=== PATIENT | female | born 1940 ===

== ENCOUNTER 2018-01-12 20:34 | Inpatient (IN) | payer MEDICARE, MEDICAID ==
[2018-01-12] MEDS ORDERED: Sodium Chloride 0.9% 1,000 ML IV STA (21:44)
--- NOTE | 2018-01-12 22:02 | ED PDOC ---
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 As per EMS, her neighbors reported bizzare behavior, saying she was in her lobby and hearing voices. However, patient denies this and states she instead is having left sided back pain, cough for about a week and mild shortness of breath. Patient denies productive cough, fever, leg swelling, rhinorrhea, sore throat, SI, auditory hallucinaions, visual hallucinations or any other medical complaints. PMD: Dr. Jesus Monge Past Medical History Reviewed: Historical Data, Nursing Documentation, Vital Signs Vital Signs: Last Vital Signs Temp 97.9 F 01/12/18 20:39 Pulse 79 01/12/18 20:39 Resp 16 01/12/18 20:39 BP 82/53 L 01/12/18 20:39 Pulse Ox 99 01/12/18 20:39 - Medical History PMH: Asthma, Depression, Diabetes, HTN - Surgical History Other surgeries: gastric bypass, left mastectomy for breast cancer - Family History Family History: States: No Known Family Hx - Social History Current smoker - smoking cessation education provided: No Ex-Smoker (has not smoked in the last 12 months): No - Home Medications Home Medications: Ambulatory Orders Medication Instructions Recorded Furosemide [Lasix] 20 mg PO DAILY 01/12/18 Ibuprofen [Motrin Tab] 400 mg PO PRN PRN 01/12/18 Metronidazole [Flagyl] 250 mg PO DAILY 01/12/18 Montelukast [Singulair] 10 mg PO DAILY 01/12/18 SITagliptin [Januvia] 50 mg PO DAILY 01/12/18 Zolpidem [Ambien] 10 mg PO DAILY 01/12/18 - Allergies Allergies/Adverse Reactions: Allergies Allergy/AdvReac Type Severity Reaction Status Date / Time prednisone Allergy REDNESS Verified 01/12/18 20:45 Physical Exam - Reviewed Nursing Documentation Reviewed: Yes Vital Signs Reviewed: Yes - Physical Exam Appears: Positive for: No Acute Distress Head Exam: Positive for: ATRAUMATIC Skin: Positive for: Normal Color, Warm, Dry Eye Exam: Positive for: EOMI, Normal appearance, PERRL ENT: Negative for: Pharyngeal Erythema, Tonsillar Exudate Neck: Positive for: Painless ROM, Supple Cardiovascular/Chest: Positive for: Regular Rate, Rhythm, Chest Non Tender. Negative for: Murmur Respiratory: Positive for: Wheezing (expiatory bilaterally). Negative for: Accessory Muscle Use, Rales, Respiratory Distress Gastrointestinal/Abdominal: Positive for: Soft. Negative for: Tenderness Back: Positive for: Other (left upper thoracic paraspinal tenderness to palpation) Extremity: Negative for: Pedal Edema, Calf Tenderness Neurologic/Psych: Positive for: Alert, Oriented (x3), Mood/Affect (normal mood and affect). Negative for: Motor/Sensory Deficits - Laboratory Results Result Diagrams: 01/12/18 22:11 01/12/18 22:11 - ECG O2 Sat by Pulse Oximetry: 99 (RA) Pulse Ox Interpretation: Normal Medical Decision Making Medical Decision Making: Time: 21:13 Initial Impression: shortness of breath and cough with back pain. Possible paranoid delusions. Initial Plan: --Head CT --EKG --CMP --Urine drug screen --Magnesium --Phosphorous --Thyroid stimulating hormone --Troponin --CBC with differentials --D Dimer --Partial Thromboplastin Time --Chest x-ray --Glucose --Urinalysis Scribe Attestation: Documented by Deann Perez, acting as a scribe for Alma Gonzalez MD Provider Scribe Attestation: All medical record entries made by the Scribe were at my direction and personally dictated by me. I have reviewed the chart and agree that the record accurately reflects my personal performance of the history, physical exam, medical decision making, and the department course for this patient. I have also personally directed, reviewed, and agree with the discharge instructions and disposition. Disposition - Clinical Impression Clinical Impression: Renal failure, acute, UTI (urinary tract infection) Discussed With DrRiccardo: Kvng Dover Comment: Admits for pt's PMD Dr Pamela Monge Doctor Will See Patient In The: Hospital Counseled Patient/Family Regarding: Studies Performed, Diagnosis - Disposition Disposition Time: 22:45 Condition: GUARDED - Pt Status Changed To: Hospital Disposition Of: Inpatient - Admit Certification Admit to Inpatient:: After my assessment, the patient will require hospitalization for at least two midnights. This is because of the severity of symptoms shown, intensity of services needed, and/or the medical risk in this patient being treated as an outpatient. - POA Present On Arrival: None
[2018-01-12 22:26] LABS: SQUAMOUS EPITHIAL 1 /hpf (0-5); URINE BACTERIA RARE (<OCC); URINE BILIRUBIN NEGATIVE (NEGATIVE); URINE BLOOD MODERATE (NEGATIVE); URINE CLARITY CLOUDY (Clear); URINE COLOR YELLOW (YELLOW); URINE GLUCOSE (UA) NEG (Normal); URINE LEUKOCYTE ESTERASE LARGE Leu/uL (Negative); URINE PROTEIN 30 mg/dL (NEGATIVE); URINE UROBILINOGEN 0.2-1.0 mg/dL (0.2-1.0)
[2018-01-12 22:29] LABS: BASO # 0.1 K/uL (0.0-0.2); BASO % 1.3 % (0.0-2.0); EOS # 0.6 K/uL (0.0-0.7); EOS % 6.7 % (0.0-4.0); HEMOGLOBIN 10.5 g/dL (12.0-16.0); LYMPH # 1.5 K/uL (1.0-4.3); LYMPH % 15.8 % (20.0-40.0); MEAN CELL VOLUME 89.9 fl (81.0-99.0); MEAN CORPUSCULAR HEMOGLOBIN 29.6 pg (27.0-31.0); MEAN PLATELET VOLUME 8.6 fl (7.2-11.7); MONO # 0.9 K/uL (0.0-0.8); MONO % 9.6 % (0.0-10.0); NEUT # 6.2 K/uL (1.8-7.0); NEUT % 66.6 % (50.0-75.0); RBC 3.55 Mil/uL (3.80-5.20); RED CELL DISTRIBUTION WIDTH 14.4 % (11.5-14.5); WHITE BLOOD COUNT 9.3 K/uL (4.8-10.8)
[2018-01-12 22:43] LABS: BARBITURATES, UR NEGATIVE (NEGATIVE); BENZODIAZEPINES, UR POSITIVE (NEGATIVE); OPIATES, UR POSITIVE (NEGATIVE); PHENCYCLIDINE, UR NEGATIVE (NEGATIVE)
[2018-01-12 22:45] LABS: ALB/GLOB RATIO 1.2 (1.0-2.1); ALBUMIN 4.3 g/dL (3.5-5.0); ALT/SGPT 27 U/L (9-52); AST/SGOT 32 U/L (14-36); BLOOD UREA NITROGEN 51 mg/dl (7-17); CALCIUM 8.2 mg/dL (8.4-10.2); GFR AFRICAN-AMERICAN 19; GFR NON-AFRICAN AMERICAN 16
[2018-01-12 22:45] LABS: PARTIAL THROMBOPLASTIN TIME 27.3 Seconds (25.6-37.1); PROTHROMBIN TIME 11.4 Seconds (9.8-13.1)
[2018-01-13] MEDS ORDERED: cefTRIAXone (Rocephin) 1 gm Inj ONE (00:07)
--- NOTE | 2018-01-13 08:08 | RAD ---
Date of service: 01/12/2018 HISTORY: LEFT sided back pain and cough COMPARISON: No prior. TECHNIQUE: Chest PA and lateral FINDINGS: LUNGS: No active pulmonary disease. PLEURA: No significant pleural effusion identified. No pneumothorax apparent. CARDIOVASCULAR: Normal. OSSEOUS STRUCTURES: No significant abnormalities. VISUALIZED UPPER ABDOMEN: Normal. OTHER FINDINGS: None. IMPRESSION: No acute cardiopulmonary disease appreciated.
[2018-01-13] MEDS: Sodium Chloride 0.9% 1,000 ML IV SCH ×2 (12:43→17:24)
--- NOTE | 2018-01-13 12:56 | CT ---
Date of service: 01/12/2018 PROCEDURE: CT HEAD WITHOUT CONTRAST. HISTORY: paranoid delusions htn COMPARISON: None available. TECHNIQUE: Axial computed tomography images were obtained through the head/brain without intravenous contrast. Radiation dose: Total exam DLP = 754 mGy-cm. This CT exam was performed using one or more of the following dose reduction techniques: Automated exposure control, adjustment of the mA and/or kV according to patient size, and/or use of iterative reconstruction technique. FINDINGS: HEMORRHAGE: No intracranial hemorrhage. BRAIN: No mass effect or edema. No atrophy or chronic microvascular ischemic changes. VENTRICLES: Unremarkable. No hydrocephalus. CALVARIUM: Unremarkable. PARANASAL SINUSES: Unremarkable as visualized. No significant inflammatory changes. MASTOID AIR CELLS: Partial opacification of the left mastoid air cells OTHER FINDINGS: The report concurs with the preliminary [facility] report IMPRESSION: No acute findings
--- NOTE | 2018-01-13 14:03 | US ---
Date of service: 01/13/2018 PROCEDURE: Ultrasound of the Kidneys HISTORY: renal insufficiency COMPARISON: None available. TECHNIQUE: Sonogram of the kidneys. FINDINGS: RIGHT KIDNEY: Measures: 4.6 x 8.4 cm. Normal in size, contour and echogenicity. No stone, solid mass lesion or hydronephrosis visualized. LEFT KIDNEY: Measures: 4.8 x 8.4 cm. Normal in size, contour and echogenicity. No stone, solid mass lesion or hydronephrosis visualized. Simple cyst midpole region 2.5 x 1.8 cm OTHER FINDINGS: None. IMPRESSION: Unremarkable renal sonogram.
--- NOTE | 2018-01-13 19:55 | CP.PCM.CON ---
History of Present Illness - History of Present Illness History of Present Illness: pt is seen and examined, full consult is dictated #[id number] Past Patient History - Past Medical History & Family History Past Medical History?: Yes - Past Social History Smoking Status: Never Smoked - CARDIAC Hx Hypertension: Yes - PULMONARY Hx Asthma: Yes - NEUROLOGICAL Hx Neurological Disorder: No - HEENT Hx HEENT Problems: No - RENAL Hx Chronic Kidney Disease: No - ENDOCRINE/METABOLIC Hx Endocrine Disorders: Yes Hx Diabetes Mellitus Type 2: Yes - HEMATOLOGICAL/ONCOLOGICAL Hx Blood Disorders: Yes Hx Cancer: Yes (Left breast) - INTEGUMENTARY Hx Dermatological Problems: No - MUSCULOSKELETAL/RHEUMATOLOGICAL Hx Falls: No - GASTROINTESTINAL Hx Gastrointestinal Disorders: No - GENITOURINARY/GYNECOLOGICAL Hx Genitourinary Disorders: No - PSYCHIATRIC Hx Depression: Yes - SURGICAL HISTORY Hx Surgeries: Yes Hx Mastectomy: Yes (Left) - ANESTHESIA Hx Anesthesia: Yes Hx Anesthesia Reactions: No Hx Malignant Hyperthermia: No Has any member of the family had a problem w/ anesthesia?: No Meds Allergies/Adverse Reactions: Allergies Allergy/AdvReac Type Severity Reaction Status Date / Time prednisone Allergy REDNESS Verified 01/12/18 20:45 - Medications Medications: Current Medications Heparin Sodium (Porcine) (Heparin) 5,000 units SC Q8 KIM PRN Reason: Protocol Last Admin: 01/13/18 15:23 Dose: 5,000 units Sodium Chloride (Sodium Chloride 0.9%) 1,000 mls @ 100 mls/hr IV .Q10H KIM Stop: 01/14/18 07:30 Last Admin: 01/13/18 17:24 Dose: 100 mls/hr Ceftriaxone Sodium 1 gm/ (Sodium Chloride) 100 mls @ 100 mls/hr IVPB DAILY KIM PRN Reason: Protocol Last Admin: 01/13/18 12:44 Dose: 100 mls/hr Sitagliptin Phosphate (Januvia) 25 mg PO DAILY [facility] Last Admin: 01/13/18 12:52 Dose: Not Given Results - Vital Signs Recent Vital Signs: Last Vital Signs Temp 97.7 F 01/13/18 15:40 Pulse 72 01/13/18 15:40 Resp 20 01/13/18 15:40 BP 114/70 01/13/18 15:40 Pulse Ox 98 01/13/18 15:40 - Labs Result Diagrams: 01/12/18 22:11 01/12/18 22:11 Labs: Laboratory Results - last 24 hr 01/12/18 01/12/18 01/12/18 21:53 21:55 22:11 WBC 9.3 Cancelled RBC 3.55 L Cancelled Hgb 10.5 L Cancelled Hct 31.9 L Cancelled MCV 89.9 Cancelled MCH 29.6 Cancelled MCHC 33.0 Cancelled RDW 14.4 Cancelled Plt Count 212 Cancelled MPV 8.6 Cancelled Gran % Cancelled Neut % (Auto) 66.6 Lymph % (Auto) 15.8 L Cancelled [place] % (Auto) 9.6 Cancelled Eos % (Auto) 6.7 H Cancelled Baso % (Auto) 1.3 Cancelled Gran # Cancelled Neut # (Auto) 6.2 Lymph # (Auto) 1.5 Cancelled [place] # (Auto) 0.9 H Cancelled Eos # (Auto) 0.6 Cancelled Baso # (Auto) 0.1 Cancelled PT INR APTT D-Dimer, Quantitative Sodium Potassium Chloride Carbon Dioxide Anion Gap BUN Creatinine Est GFR ( Amer) Est GFR (Non-Af Amer) POC Glucose (mg/dL) 108 Random Glucose Hemoglobin A1c Calcium Phosphorus Magnesium Total Bilirubin AST ALT Alkaline Phosphatase Troponin I NT-Pro-B Natriuret Pep Total Protein Albumin Globulin Albumin/Globulin Ratio TSH 3rd Generation Urine Color Urine Clarity Urine pH Ur Specific [place] Urine Protein Urine Glucose (UA) Urine Ketones Urine Blood Urine Nitrate Urine Bilirubin Urine Urobilinogen Ur Leukocyte Esterase Urine RBC (Auto) Urine Microscopic WBC Ur Squamous Epith Cells Urine Bacteria Ur Random Sodium Ur Random Potassium Urine Opiates Screen Urine Methadone Screen Ur Barbiturates Screen Ur Phencyclidine Scrn Ur Amphetamines Screen U Benzodiazepines Scrn U Oth Cocaine Metabols U Cannabinoids Screen 01/12/18 01/12/18 01/12/18 22:11 22:11 22:11 WBC RBC Hgb Hct MCV MCH MCHC RDW Plt Count MPV Gran % Neut % (Auto) Lymph % (Auto) [place] % (Auto) Eos % (Auto) Baso % (Auto) Gran # Neut # (Auto) Lymph # (Auto) [place] # (Auto) Eos # (Auto) Baso # (Auto) PT INR APTT D-Dimer, Quantitative Sodium 138 Potassium 4.9 Chloride 107 Carbon Dioxide 17 L Anion Gap 19 BUN 51 H Creatinine 2.9 H Est GFR ( Amer) 19 Est GFR (Non-Af Amer) 16 POC Glucose (mg/dL) Random Glucose 117 H Hemoglobin A1c Calcium 8.2 L Phosphorus 3.9 Magnesium 2.0 Total Bilirubin 0.5 AST 32 ALT 27 Alkaline Phosphatase 93 Troponin I < 0.0120 NT-Pro-B Natriuret Pep 1100 H Total Protein 7.8 Albumin 4.3 Globulin 3.5 Albumin/Globulin Ratio 1.2 TSH 3rd Generation 1.15 Urine Color Urine Clarity Urine pH Ur Specific [place] Urine Protein Urine Glucose (UA) Urine Ketones Urine Blood Urine Nitrate Urine Bilirubin Urine Urobilinogen Ur Leukocyte Esterase Urine RBC (Auto) Urine Microscopic WBC Ur Squamous Epith Cells Urine Bacteria Ur Random Sodium Ur Random Potassium Urine Opiates Screen Positive H Urine Methadone Screen Negative Ur Barbiturates Screen Negative Ur Phencyclidine Scrn Negative Ur Amphetamines Screen Negative U Benzodiazepines Scrn Positive U Oth Cocaine Metabols Negative U Cannabinoids Screen Negative 01/12/18 01/12/18 01/13/18 22:26 22:30 00:10 WBC RBC Hgb Hct MCV MCH MCHC RDW Plt Count MPV Gran % Neut % (Auto) Lymph % (Auto) [place] % (Auto) Eos % (Auto) Baso % (Auto) Gran # Neut # (Auto) Lymph # (Auto) [place] # (Auto) Eos # (Auto) Baso # (Auto) PT 11.4 INR 1.0 APTT 27.3 D-Dimer, Quantitative 433 H Sodium Potassium Chloride Carbon Dioxide Anion Gap BUN Creatinine Est GFR ( Amer) Est GFR (Non-Af Amer) POC Glucose (mg/dL) Random Glucose Hemoglobin A1c Calcium Phosphorus Magnesium Total Bilirubin AST ALT Alkaline Phosphatase Troponin I NT-Pro-B Natriuret Pep Total Protein Albumin Globulin Albumin/Globulin Ratio TSH 3rd Generation Urine Color Yellow Urine Clarity Cloudy Urine pH 6.0 Ur Specific [place] 1.009 Urine Protein 30 Urine Glucose (UA) Neg Urine Ketones Negative Urine Blood Moderate Urine Nitrate Negative Urine Bilirubin Negative Urine Urobilinogen 0.2-1.0 Ur Leukocyte Esterase Large Urine RBC (Auto) 66 H Urine Microscopic WBC 82 H Ur Squamous Epith Cells 1 Urine Bacteria Rare Ur Random Sodium 30 Ur Random Potassium 42.3 Urine Opiates Screen Urine Methadone Screen Ur Barbiturates Screen Ur Phencyclidine Scrn Ur Amphetamines Screen U Benzodiazepines Scrn U Oth Cocaine Metabols U Cannabinoids Screen 01/13/18 01/13/18 01/13/18 11:24 12:15 12:15 WBC RBC Hgb Hct MCV MCH MCHC RDW Plt Count MPV Gran % Neut % (Auto) Lymph % (Auto) [place] % (Auto) Eos % (Auto) Baso % (Auto) Gran # Neut # (Auto) Lymph # (Auto) [place] # (Auto) Eos # (Auto) Baso # (Auto) PT INR APTT D-Dimer, Quantitative Sodium Potassium Chloride Carbon Dioxide Anion Gap BUN Creatinine Est GFR ( Amer) Est GFR (Non-Af Amer) POC Glucose (mg/dL) 71 Random Glucose Hemoglobin A1c 5.6 Calcium Phosphorus Magnesium Total Bilirubin AST ALT Alkaline Phosphatase Troponin I NT-Pro-B Natriuret Pep Total Protein Albumin Globulin Albumin/Globulin Ratio TSH 3rd Generation 0.71 Urine Color Urine Clarity Urine pH Ur Specific [place] Urine Protein Urine Glucose (UA) Urine Ketones Urine Blood Urine Nitrate Urine Bilirubin Urine Urobilinogen Ur Leukocyte Esterase Urine RBC (Auto) Urine Microscopic WBC Ur Squamous Epith Cells Urine Bacteria Ur Random Sodium Ur Random Potassium Urine Opiates Screen Urine Methadone Screen Ur Barbiturates Screen Ur Phencyclidine Scrn Ur Amphetamines Screen U Benzodiazepines Scrn U Oth Cocaine Metabols U Cannabinoids Screen 01/13/18 15:59 WBC RBC Hgb Hct MCV MCH MCHC RDW Plt Count MPV Gran % Neut % (Auto) Lymph % (Auto) [place] % (Auto) Eos % (Auto) Baso % (Auto) Gran # Neut # (Auto) Lymph # (Auto) [place] # (Auto) Eos # (Auto) Baso # (Auto) PT INR APTT D-Dimer, Quantitative Sodium Potassium Chloride Carbon Dioxide Anion Gap BUN Creatinine Est GFR ( Amer) Est GFR (Non-Af Amer) POC Glucose (mg/dL) 113 H Random Glucose Hemoglobin A1c Calcium Phosphorus Magnesium Total Bilirubin AST ALT Alkaline Phosphatase Troponin I NT-Pro-B Natriuret Pep Total Protein Albumin Globulin Albumin/Globulin Ratio TSH 3rd Generation Urine Color Urine Clarity Urine pH Ur Specific [place] Urine Protein Urine Glucose (UA) Urine Ketones Urine Blood Urine Nitrate Urine Bilirubin Urine Urobilinogen Ur Leukocyte Esterase Urine RBC (Auto) Urine Microscopic WBC Ur Squamous Epith Cells Urine Bacteria Ur Random Sodium Ur Random Potassium Urine Opiates Screen Urine Methadone Screen Ur Barbiturates Screen Ur Phencyclidine Scrn Ur Amphetamines Screen U Benzodiazepines Scrn U Oth Cocaine Metabols U Cannabinoids Screen
--- NOTE | 2018-01-13 20:25 | HP ---
CHIEF COMPLAINT: Altered mental status. HISTORY OF PRESENT ILLNESS: This is a 77-year-old female who was found in hallway by hearing voice, and change in her usual mental status. The patient was sent to the hospital. The patient denied symptoms, but complaining of back pain. After evaluation, the patient was found to be in acute renal failure. The patient was admitted for further management. REVIEW OF SYSTEMS: Review of systems at this time is negative for headache, dizziness, syncope, loss of consciousness, chest pain, shortness of breath, nausea or vomiting, diarrhea, constipation, or any new joint or extremity pain. Review of systems of all other system is unremarkable. PAST MEDICAL HISTORY: Significant for hypertension. PAST SURGICAL HISTORY: Unremarkable. PERSONAL HISTORY: The patient is currently nonsmoker, nondrinker. No substance abuse. MEDICATIONS: The patient is on some home medications, which patient does not remember at this time. ALLERGIES: THE PATIENT IS NOT ALLERGIC TO ANY MEDICATION. FAMILY HISTORY: Noncontributory. PHYSICAL EXAMINATION: GENERAL: Well-built, well-nourished, 77-year-old female, in no acute distress. VITAL SIGNS: Temperature afebrile, pulse 88, respirations 18, blood pressure 130/76. No orthostatic changes. HEENT: Pupils reacting to light. No JVD. No thyromegaly. No lymphadenopathy. No nystagmus. Normocephalic, atraumatic skull. HEART EXAM: S1 and S2, normal and regular. No significant murmur, gallop, or rub is heard. LUNGS EXAM: Shows good bilateral air exchange. No rales or rhonchi. ABDOMEN: Soft and nontender. No organomegaly. No fluid. Bowel sounds are present and normal. EXTREMITIES EXAM: No edema. No calf swelling or tenderness. No acute ischemia. GEOPHYSICIST: Essentially unchanged. There is no sign of any acute gross focal, motor, or sensory neurological deficit. DIAGNOSTIC DATA: Available diagnostic data reviewed. Telemetry monitoring does not reveal significant arrhythmias. The patient's BUN and creatinine are elevated. ADMITTING IMPRESSION: Altered mental status most likely from prerenal azotemia. PLAN: As ordered. Case and plan discussed with the patient. Kvng Dover MD [facility] # [id number]
[2018-01-14] MEDS: Sodium Chloride 0.9% 1,000 ML IV SCH (03:30)
[2018-01-14 06:12] LABS: HEMOGLOBIN 8.4 g/dL (12.0-16.0); MEAN CORPUSCULAR HEMOGLOBIN 29.5 pg (27.0-31.0); MEAN CORPUSCULAR HGB CONC 32.8 g/dL (33.0-37.0); RBC 2.86 Mil/uL (3.80-5.20); WHITE BLOOD COUNT 5.7 K/uL (4.8-10.8)
[2018-01-14 06:40] LABS: ALBUMIN 2.9 g/dL (3.5-5.0); CALCIUM 7.3 mg/dL (8.4-10.2)
--- NOTE | 2018-01-14 07:12 | CON ---
DATE: 01/13/2018 RENAL CONSULTATION LOCATION: The patient is located in room 401, bed 1. REQUESTED BY: Dr. Kvng Dover. REASON FOR FOLLOWUP: Acute renal failure for further evaluation. HISTORY OF PRESENT ILLNESS: Mrs. Stanford is a 77-year-old elderly female with the past medical history significant for diabetes for 9 years and questionable hypertension, history of breast CA, status post left mastectomy about 10 years ago and also status post gastric bypass surgery, who was admitted with the chief complaints of feeling dizzy and hypertension and weakness. The patient was found to have increased BUN and creatinine and renal consult is requested for further evaluation. The patient is complaining of dizziness for the last two days and the patient also complains headache. Denies any nausea, vomiting, diarrhea. Denies any fever or cough. Denies any dysuria or frequency. Denies any shortness of breath. Denies any abdominal pain. PAST MEDICAL HISTORY: Significant for asthma, diabetes, hypertension, depression. PAST SURGICAL HISTORY: Status post left mastectomy and gastric bypass. ALLERGIES: ALLERGIC TO PREDNISONE. SOCIAL HISTORY: Denies any smoking. Denies any alcohol. Denies any drugs. PERSONAL HISTORY: She is and she claims her is in [place]. No children. FAMILY HISTORY: Both parents and she has six siblings, two and four alive. CURRENT MEDICATIONS: Her home medications include Flagyl, Ambien, ibuprofen, Januvia, Singulair, and Lasix. Her current medications in the hospital include Rocephin 1 gm daily and subcu heparin 5000 every 8 hours and Januvia 25 mg p.o. daily. IV fluids of the normal saline at 100 mL/hour. REVIEW OF SYSTEMS: Significant for dizziness and hypertension as per the patient. As per the ER evaluation, the patient was brought to the emergency room for bizarre behavior and hearing voices. All other review of systems are reviewed as per HPI. PHYSICAL EXAMINATION: VITAL SIGNS: As follows; her blood pressure on admission in the emergency room 82/53, pulse 79, respirations 16, temperature is 79.9, and saturation 99%, height is 4 feet 10 inches, weight is 170 pounds; that is on 01/12/2018 at 20:39 hours and her current blood pressure is 124/76, pulse 79, respirations 20, temperature 98, sats 96%, height 4 feet 10 inches, weight is 170 pounds. GENERAL: Mrs. Stanford is a 77 years old elderly female, well built, well nourished, not in distress. HEENT: Pupils normal, reactive to light and accommodation. Conjunctivae pink. Sclerae anicteric. The tongue is moist and trachea is midline. LUNGS: Symmetric on both sides. Bilateral breath sounds present. Clear to auscultation. BREASTS: Status post left mastectomy. CVS: [place] at the fifth intercostal space and midclavicular line. S1, S2 audible. No murmur or gallop. ABDOMEN: Normal in appearance. Soft, tympanic. No guarding. No rigidity. No hepatosplenomegaly. ULTRASONIC TESTER: The patient is alert, awake, and oriented x2 to 3. Sensory and motor system is grossly within normal limits. EXTREMITIES: No cyanosis. No clubbing. No edema. Cranial nerves II through XII are grossly intact. LABORATORY DATA: Her laboratory data include as follows. As of 01/12/2018; WBC 9.3, hemoglobin 10.5, hematocrit is 31.9, platelets 212. PT 11.4, PTT 27.3, and D-dimer 433. Sodium 138, potassium 4.9, chloride 107, CO2 17, BUN 51, creatinine 2.9, and glucose 117, calcium 8.2, total calcium 8.2, phosphorus 3.9, magnesium is 2, total bilirubin 0.5. AST 32, ALT 22, alkaline phosphatase is 93, troponin is 0.012 and proBNP 1100, total protein 7.8 and albumin 4.3. Urinalysis: Yellow, cloudy, pH 6, specific gravity of 1.009, protein 30. Glucose negative, ketones negative, blood moderate, nitrites negative, bilirubin negative, and urobilinogen 0.2 to 1.0. Leukocyte esterase is large, rbc 66, wbc 82, and bacteria is rare. Urine electrolytes: Urine sodium is 30 and urine potassium is 42.3. Urine drug screen positive for opiates and also positive for benzodiazepine. Other laboratory data: TSH is 0.73 as of 01/13/2018, and hemoglobin A1c is 5.6, Accu-checks 71 and 113. Other reports as of 01/12/2018. Chest x-ray: No acute cardiopulmonary disease appreciated. CT of the head as of 12/23/2017, no acute findings. Ultrasound of the kidneys as of 01/12/2018, right kidney 8.4 x 4.6 cm, normal size, contour and echogenicity. No stones or any mass. Right nephrosis. Left kidney of 8.4 x 4.8 cm, normal size, contour and echogenicity. ASSESSMENT AND PLAN: In summary, Mrs. Stanford is 77-year-old elderly female with the history of diabetes, hypertension, status post left mastectomy, gastric bypass was admitted with the hypotension, dizziness and questionable bizarre behavior and started on IV fluids; and increased BUN and creatinine. 1. Renal failure most likely acute renal failure, cannot rule out acute on chronic. 2. Hypotension most likely secondary to intravascular volume depletion, secondary to diuretics. 3. Diabetes. Sugars are under control. Continue Januvia. Continue IV fluids. Normal saline at 100 mL/hour and repeat BNP in a.m. Also we will check CPK levels. We will follow with you. Thank you for allowing me to participate in your patient's care. We will also check hepatitis B and C serology, DONNA C3 and C4. We avoid nephrotoxic agents at this time and also we will check urine cultures. Rox Hurt MD
--- NOTE | 2018-01-14 09:55 | CP.PCM.PN ---
Subjective - Date & Time of Evaluation Date of Evaluation: 01/14/18 Time of Evaluation: 09:55 - Subjective Subjective: pt is seen and examined, follow up consult is dictated #[id number] Objective - Vital Signs/Intake and Output Vital Signs (last 24 hours): Temp Pulse Resp BP Pulse Ox 98.4 F 85 18 114/65 98 01/14/18 08:00 01/14/18 08:00 01/14/18 08:00 01/14/18 08:00 01/14/18 08:00 - Medications Medications: Current Medications Heparin Sodium (Porcine) (Heparin) 5,000 units SC Q8 KIM PRN Reason: Protocol Last Admin: 01/14/18 01:00 Dose: 5,000 units Ceftriaxone Sodium 1 gm/ (Sodium Chloride) 100 mls @ 100 mls/hr IVPB DAILY KIM PRN Reason: Protocol Last Admin: 01/13/18 12:44 Dose: 100 mls/hr Sitagliptin Phosphate (Januvia) 25 mg PO DAILY KIM Last Admin: 01/13/18 12:52 Dose: Not Given - Labs Labs: 01/14/18 05:00 01/14/18 05:00 PT 11.4 Seconds (9.8-13.1) 01/12/18 22:30 INR 1.0 (0.9-1.2) 01/12/18 22:30 APTT 27.3 Seconds (25.6-37.1) 01/12/18 22:30
--- NOTE | 2018-01-14 11:09 | CARD ---
APPROVED REPORT Date of service: 01/12/2018 EKG Measurement Heart [id number] <Conclusion> Sinus rhythm with 1st degree AV block Low voltage QRS Borderline ECG
[2018-01-14 12:00] LABS: COMPLEMENT C4 33.2 mg/dL (14.0-44.0)
[2018-01-14 12:16] LABS: HEPATITIS B SURFACE AG Negative (NEGATIVE)
[2018-01-14 12:22] LABS: HEPATITIS A IGM NEGATIVE (NEGATIVE); HEPATITIS B CORE AB NEGATIVE (NEGATIVE)
[2018-01-14 12:33] LABS: HEPATITIS C ANTIBODY NEGATIVE (NEGATIVE)
--- NOTE | 2018-01-14 14:38 | CP.PCM.CON ---
History of Present Illness - History of Present Illness History of Present Illness: 77 year old female with a history of asthma, diabetes, hypertension, and depression brought in via EMS presents to the ED for psychiatric evaluation. As per EMS, her neighbors reported bizarre behavior, saying she was in her lobby and hearing voices. However, patient denies this and states she instead is having left sided back pain, cough for about a week and mild shortness of breath. pt on evaluation denied any previous formal psychiatric diagnosis or treatment, reported she has immigrated from [place] 35ys ago has been working , currently retired, has two god daughters who visit her on regular basis, denied changes in sleep or appetite , denied depression, anxiety denied any perceptual disturbances, non elicited Past Patient History - Past Medical History & Family History Past Medical History?: Yes - Past Social History Smoking Status: Never Smoked - CARDIAC Hx Hypertension: Yes - PULMONARY Hx Asthma: Yes - NEUROLOGICAL Hx Neurological Disorder: No - HEENT Hx HEENT Problems: No - RENAL Hx Chronic Kidney Disease: No - ENDOCRINE/METABOLIC Hx Endocrine Disorders: Yes Hx Diabetes Mellitus Type 2: Yes - HEMATOLOGICAL/ONCOLOGICAL Hx Blood Disorders: Yes Hx Cancer: Yes (Left breast) - INTEGUMENTARY Hx Dermatological Problems: No - MUSCULOSKELETAL/RHEUMATOLOGICAL Hx Falls: No - GASTROINTESTINAL Hx Gastrointestinal Disorders: No - GENITOURINARY/GYNECOLOGICAL Hx Genitourinary Disorders: No - PSYCHIATRIC Hx Depression: Yes - SURGICAL HISTORY Hx Surgeries: Yes Hx Mastectomy: Yes (Left) - ANESTHESIA Hx Anesthesia: Yes Hx Anesthesia Reactions: No Hx Malignant Hyperthermia: No Has any member of the family had a problem w/ anesthesia?: No Meds Allergies/Adverse Reactions: Allergies Allergy/AdvReac Type Severity Reaction Status Date / Time prednisone Allergy REDNESS Verified 01/12/18 20:45 - Medications Medications: Current Medications Heparin Sodium (Porcine) (Heparin) 5,000 units SC Q8 KIM PRN Reason: Protocol Last Admin: 01/14/18 10:12 Dose: 5,000 units Ceftriaxone Sodium 1 gm/ (Sodium Chloride) 100 mls @ 100 mls/hr IVPB DAILY KIM PRN Reason: Protocol Last Admin: 01/14/18 10:14 Dose: 100 mls/hr Sitagliptin Phosphate (Januvia) 25 mg PO DAILY KIM Last Admin: 01/14/18 10:13 Dose: 25 mg Physical Exam - Psychiatric Exam Additional comments: Interview with translation, pt is seen in bed , cooperative good eye contact, speech normal mood reported fine, affect appropriate, denied any current suicidal or homicidal ideation, denied perceptual disturbances, non elicited, alert awake oriented to person and palce Results - Vital Signs Recent Vital Signs: Last Vital Signs Temp 98.1 F 01/14/18 12:00 Pulse 75 01/14/18 12:00 Resp 20 01/14/18 12:00 BP 125/67 01/14/18 12:00 Pulse Ox 97 01/14/18 12:00 - Labs Result Diagrams: 01/14/18 05:00 01/14/18 05:00 Labs: Laboratory Results - last 24 hr 01/13/18 01/13/18 01/13/18 05:56 12:15 15:59 WBC RBC Hgb Hct MCV MCH MCHC RDW Plt Count Sodium Potassium Chloride Carbon Dioxide Anion Gap BUN Creatinine Est GFR ( Amer) Est GFR (Non-Af Amer) POC Glucose (mg/dL) 82 113 H Random Glucose Hemoglobin A1c 5.6 Calcium Total Bilirubin AST ALT Alkaline Phosphatase Total Protein Albumin Globulin Albumin/Globulin Ratio Complement C3 Complement C4 Hepatitis A IgM Ab Hep Bs Antigen Hep B Core IgM Ab Hepatitis C Antibody 01/13/18 01/13/18 01/13/18 20:45 20:45 21:12 WBC RBC Hgb Hct MCV MCH MCHC RDW Plt Count Sodium Potassium Chloride Carbon Dioxide Anion Gap BUN Creatinine Est GFR ( Amer) Est GFR (Non-Af Amer) POC Glucose (mg/dL) 138 H Random Glucose Hemoglobin A1c Calcium Total Bilirubin AST ALT Alkaline Phosphatase Total Protein Albumin Globulin Albumin/Globulin Ratio Complement C3 75.0 L Complement C4 33.2 Hepatitis A IgM Ab Negative Hep Bs Antigen Negative Hep B Core IgM Ab Negative Hepatitis C Antibody Negative 01/14/18 01/14/18 01/14/18 05:00 05:00 05:03 WBC 5.7 RBC 2.86 L Hgb 8.4 L D Hct 25.7 L MCV 90.0 MCH 29.5 MCHC 32.8 L RDW 14.0 Plt Count 165 Sodium 143 Potassium 4.3 Chloride 116 H Carbon Dioxide 19 L Anion Gap 12 BUN 31 H Creatinine 1.3 H Est GFR ( Amer) 48 Est GFR (Non-Af Amer) 40 POC Glucose (mg/dL) 93 Random Glucose 89 Hemoglobin A1c Calcium 7.3 L Total Bilirubin 0.2 AST 22 ALT 21 Alkaline Phosphatase 66 Total Protein 5.8 L Albumin 2.9 L D Globulin 2.8 Albumin/Globulin Ratio 1.0 Complement C3 Complement C4 Hepatitis A IgM Ab Hep Bs Antigen Hep B Core IgM Ab Hepatitis C Antibody 01/14/18 11:27 WBC RBC Hgb Hct MCV MCH MCHC RDW Plt Count Sodium Potassium Chloride Carbon Dioxide Anion Gap BUN Creatinine Est GFR ( Amer) Est GFR (Non-Af Amer) POC Glucose (mg/dL) 73 Random Glucose Hemoglobin A1c Calcium Total Bilirubin AST ALT Alkaline Phosphatase Total Protein Albumin Globulin Albumin/Globulin Ratio Complement C3 Complement C4 Hepatitis A IgM Ab Hep Bs Antigen Hep B Core IgM Ab Hepatitis C Antibody Assessment & Plan - Assessment and Plan (Free Text) Assessment: no diagnosis or condition on axis I Plan: pt at current mental status not danger to self or others psychiatricaly cleared for discharge upon medical clearance
[2018-01-15 05:32] LABS: HEMOGLOBIN 9.6 g/dL (12.0-16.0); MEAN CELL VOLUME 89.7 fl (81.0-99.0); MEAN CORPUSCULAR HEMOGLOBIN 29.8 pg (27.0-31.0); MEAN CORPUSCULAR HGB CONC 33.2 g/dL (33.0-37.0); RBC 3.24 Mil/uL (3.80-5.20); RED CELL DISTRIBUTION WIDTH 13.9 % (11.5-14.5); WHITE BLOOD COUNT 6.1 K/uL (4.8-10.8)
[2018-01-15 06:10] LABS: IRON 65 ug/dL (37-170)
[2018-01-15 06:15] LABS: FERRITIN 53.7 ng/Ml (11.1-264.0)
[2018-01-15 06:19] LABS: % IRON SATURATION 30 % (20-55); TOTAL IRON BINDING CAPACITY 220 ug/dL (250-450)
[2018-01-15 06:48] LABS: CALCIUM 7.7 mg/dL (8.4-10.2)
--- NOTE | 2018-01-15 08:40 | PN ---
DATE: 01/14/2018 SUBJECTIVE: The patient seen and examined. Interim events noted. The patient remains in progressive care unit on telemetry monitoring. Since then no chest pain, no shortness of breath, no dizziness. No palpitations. PHYSICAL EXAMINATION: GENERAL: The patient is in no acute distress. VITAL SIGNS: Stable. HEART: S1 and S2. Normal and regular. LUNGS: Good bilateral air exchange. ABDOMEN: Soft, nontender. No organomegaly. No fluid. Bowel sounds are plus and normal. EXTREMITIES: No edema. No calf swelling. No tenderness. No acute ischemia. 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 DIAGNOSTIC DATA: Available diagnostic data reviewed. BUN is coming down nicely to 31. Nephrology consult noted and appreciated. Telemetry monitoring does not show significant arrhythmias. ASSESSMENT AND PLAN: Overall, the patient's general medical condition is stable. Plan as ordered. Kvng Dover MD
[2018-01-15 08:44] VITALS: RESP 20
--- NOTE | 2018-01-15 09:19 | PN ---
DATE: 01/14/2018 FOLLOWUP RENAL CONSULTATION LOCATION: The patient is located in room 402, bed 1. REQUESTED BY: Kvng Dover MD REASON FOR FOLLOWUP: Acute renal failure. SUBJECTIVE: The patient is a 77-year-old elderly female with a history of diabetes, hypertension, depression, brought into the emergency room for possible psychiatric evaluation, subsequently admitted to medical floor for dizziness and hypotension and bizarre behavior. On examination, the patient was responding appropriately and the patient is feeling much better with IV hydration and no dizziness. No chest pain. No palpitation. No fever. No cough. No abdominal pain. No nausea, vomiting, or diarrhea. PHYSICAL EXAMINATION: VITAL SIGNS: This morning as follows: Blood pressure 114/65, pulse 85, respirations 18, temperature 98.4, saturation 98%. Height 4 feet 10 inches, weight is 170 pounds. GENERAL: The patient is a 77-year-old elderly female. Moderately built, moderately nourished, not in acute distress. HEENT: Pupils normal and reactive to light and accommodation. Conjunctivae pink. Sclerae anicteric. Tongue is moist. Trachea is midline. LUNGS: Symmetric on both sides. Bilateral breath sounds present. Clear to auscultation. CVS: [place] at the fifth intercostal space, midclavicular line. S1, S2 audible. No murmur, or gallop. ABDOMEN: Normal in appearance, soft, tympanic. No guarding. No striae. No hepatosplenomegaly. ORTHO RN: The patient is alert, awake, and oriented x3. Nonfocal neuro examination. Cranial nerves II-XII grossly intact. Sensory and motor system are within normal limits. EXTREMITIES: No cyanosis, no clubbing, no edema. CURRENT MEDICATIONS: Include as follows: Rocephin 1 gm daily, subcu heparin 5000 every 8 hours, Januvia 25 mg p.o. daily. LABORATORY DATA: Includes as follows: As of 01/14/2018, WBC 5.7, hemoglobin 8.4, hematocrit is 25.7, platelets 165. Sodium 143, potassium 4.3, chloride 116, CO2 19, BUN 31, creatinine 1.3, glucose 89, calcium 7.3. Total bili 0.3, AST 22, ALT 21, alkaline phosphatase 66, total protein 5.9, albumin is 2.9, and complement level, C3 is 75 and C4 is 33.2, and hepatitis B surface antigen negative. Core antibody IgM negative, hep C antibody is negative. Hepatitis C IgM antibody is negative. Urine toxic screen positive for opiates and benzodiazepines. ASSESSMENT AND PLAN: In summary, the patient is a 77-year-old elderly female with hypertension, diabetes, status post gastric bypass, who was admitted with hypotension, dizziness, and bizarre behavior. Urine toxic screen positive for opiates and benzodiazepines, now with low hemoglobin and hematocrit, and also increased BUN and creatinine. 1. Acute renal failure, most likely secondary to intravascular volume depletion secondary to diuretics. 2. Anemia, rule out iron-deficiency anemia. 3. Diabetes. Sugars under control. 4. Hypertension. Blood pressure is stable, not on any blood pressure medicine at this time. Continue to monitor BMP and check DONNA levels and check iron TIBC, ferritin, and stool for occult blood. We will follow with you. Increase p.o. intake. Thank you for allowing me to participate in your patient's care. Rox Hurt MD
--- NOTE | 2018-01-15 11:46 | CP.PCM.DIS ---
Provider - Provider Date of Admission: 01/12/18 23:10 Attending physician: Kvng Dover MD Time Spent in preparation of Discharge (in minutes): 20 Diagnosis - Discharge Diagnosis (1) Hypertension Status: Chronic (2) Diabetes Status: Chronic (3) Renal failure, acute Status: Acute (4) UTI (urinary tract infection) Status: Ruled-out Hospital Course - Lab Results Lab Results: Micro Results 01/13/18 20:05 Urine,Clean Catch Urine Culture - Final No Growth (<1,000 CFU/ML) Most Recent Lab Values WBC 6.1 K/uL (4.8-10.8) 01/15/18 04:20 RBC 3.24 Mil/uL (3.80-5.20) L 01/15/18 04:20 Hgb 9.6 g/dL (12.0-16.0) L 01/15/18 04:20 Hct 29.1 % (34.0-47.0) L 01/15/18 04:20 MCV 89.7 fl (81.0-99.0) 01/15/18 04:20 MCH 29.8 pg (27.0-31.0) 01/15/18 04:20 MCHC 33.2 g/dL (33.0-37.0) 01/15/18 04:20 RDW 13.9 % (11.5-14.5) 01/15/18 04:20 Plt Count 176 K/uL (130-400) 01/15/18 04:20 MPV Cancelled 01/12/18 22:11 Gran % Cancelled 01/12/18 22:11 Neut % (Auto) 66.6 % (50.0-75.0) 01/12/18 21:55 Lymph % (Auto) Cancelled 01/12/18 22:11 [place] % (Auto) Cancelled 01/12/18 22:11 Eos % (Auto) Cancelled 01/12/18 22:11 Baso % (Auto) Cancelled 01/12/18 22:11 Gran # Cancelled 01/12/18 22:11 Neut # (Auto) 6.2 K/uL (1.8-7.0) 01/12/18 21:55 Lymph # (Auto) Cancelled 01/12/18 22:11 [place] # (Auto) Cancelled 01/12/18 22:11 Eos # (Auto) Cancelled 01/12/18 22:11 Baso # (Auto) Cancelled 01/12/18 22:11 PT 11.4 Seconds (9.8-13.1) 01/12/18 22:30 INR 1.0 (0.9-1.2) 01/12/18 22:30 APTT 27.3 Seconds (25.6-37.1) 01/12/18 22:30 D-Dimer, Quantitative 433 ng/mlDDU (0-230) H 01/12/18 22:30 Sodium 143 mmol/l (132-148) 01/15/18 04:20 Potassium 4.2 MMOL/L (3.6-5.0) 01/15/18 04:20 Chloride 115 mmol/L (98-107) H 01/15/18 04:20 Carbon Dioxide 18 mmol/L (22-30) L 01/15/18 04:20 Anion Gap 14 (10-20) 01/15/18 04:20 BUN 20 mg/dl (7-17) H 01/15/18 04:20 Creatinine 1.1 mg/dl (0.7-1.2) 01/15/18 04:20 Est GFR ( Amer) 58 01/15/18 04:20 Est GFR (Non-Af Amer) 48 01/15/18 04:20 POC Glucose (mg/dL) 80 mg/dL (65-110) 01/15/18 11:17 Random Glucose 120 mg/dL (65-105) H 01/15/18 04:20 Hemoglobin A1c 5.6 % (4.2-6.5) 01/13/18 12:15 Calcium 7.7 mg/dL (8.4-10.2) L 01/15/18 04:20 Phosphorus 3.9 mg/dl (2.5-4.5) 01/12/18 22:11 Magnesium 2.0 MG/DL (1.6-2.3) 01/12/18 22:11 Iron 65 ug/dL (37-170) 01/15/18 05:25 TIBC 220 ug/dL (250-450) L 01/15/18 05:25 % Saturation 30 % (20-55) 01/15/18 05:25 Ferritin 53.7 ng/Ml (11.1-264.0) 01/15/18 04:20 Total Bilirubin 0.2 mg/dl (0.2-1.3) 01/14/18 05:00 AST 22 U/L (14-36) 01/14/18 05:00 ALT 21 U/L (9-52) 01/14/18 05:00 Alkaline Phosphatase 66 U/L (38-126) 01/14/18 05:00 Troponin I < 0.0120 ng/mL (0.00-0.120) 01/12/18 22:11 NT-Pro-B Natriuret Pep 1100 pg/ml (0-900) H 01/12/18 22:11 Total Protein 5.8 G/DL (6.3-8.2) L 01/14/18 05:00 Albumin 2.9 g/dL (3.5-5.0) L D 01/14/18 05:00 Globulin 2.8 gm/dL (2.2-3.9) 01/14/18 05:00 Albumin/Globulin Ratio 1.0 (1.0-2.1) 01/14/18 05:00 TSH 3rd Generation 0.71 mIU/ML (0.46-4.68) 01/13/18 12:15 Urine Color Yellow (YELLOW) 01/12/18 22: Urine Clarity Cloudy (Clear) 01/12/18 22: Urine pH 6.0 (5.0-8.0) 01/12/18 22:26 Ur Specific [place] 1.009 (1.003-1.030) 01/12/18 22: Urine Protein 30 mg/dL (NEGATIVE) 01/12/18 22: Urine Glucose (UA) Neg mg/dL (Normal) 01/12/18 22: Urine Ketones Negative mg/dL (NEGATIVE) 01/12/18 22: Urine Blood Moderate (NEGATIVE) 01/12/18 22: Urine Nitrate Negative (NEGATIVE) 01/12/18 22: Urine Bilirubin Negative (NEGATIVE) 01/12/18 22: Urine Urobilinogen 0.2-1.0 mg/dL (0.2-1.0) 01/12/18 22:26 Ur Leukocyte Esterase Large [place]/uL (Negative) 01/12/18 22:26 Urine RBC (Auto) 66 /hpf (0-3) H 01/12/18 22:26 Urine Microscopic WBC 82 /hpf (0-5) H 01/12/18 22:26 Ur Squamous Epith Cells 1 /hpf (0-5) 01/12/18 22:26 Urine Bacteria Rare (<OCC) 01/12/18 22:26 Ur Random Sodium 30 meq/L 01/13/18 00:10 Ur Random Potassium 42.3 mmol/L 01/13/18 00:10 Urine Opiates Screen Positive (NEGATIVE) H 01/12/18 22:11 Urine Methadone Screen Negative (NEGATIVE) 01/12/18 22:11 Ur Barbiturates Screen Negative (NEGATIVE) 01/12/18 22:11 Ur Phencyclidine Scrn Negative (NEGATIVE) 01/12/18 22:11 Ur Amphetamines Screen Negative (NEGATIVE) 01/12/18 22:11 U Benzodiazepines Scrn Positive (NEGATIVE) 01/12/18 22:11 U Oth Cocaine Metabols Negative (NEGATIVE) 01/12/18 22:11 U Cannabinoids Screen Negative (NEGATIVE) 01/12/18 22:11 Complement C3 75.0 mg/dL (88.0-165.0) L 01/13/18 20:45 Complement C4 33.2 mg/dL (14.0-44.0) 01/13/18 20:45 Hepatitis A IgM Ab Negative (NEGATIVE) 01/13/18 20:45 Hep Bs Antigen Negative (NEGATIVE) 01/13/18 20:45 Hep B Core IgM Ab Negative (NEGATIVE) 01/13/18 20:45 Hepatitis C Antibody Negative (NEGATIVE) 01/13/18 20:45 - Hospital Course Hospital Course: 77 YO female with PMHx of asthma, diabetes, hypertension, and depression was admitted for renal insufficiency and UTI. Nephrology was consulted, acute renal insufficiency resolved. Initial UA sig for UTI, asymptomatic with no growth on culture. Psychiatry was consulted for depression and anxiety, pt cleared by psych to be d/c home. Pt remains hemodynamically stable, will d/c home with follow up with PMD in 1 week. Discharge Exam - Head Exam Head Exam: ATRAUMATIC - ENT Exam ENT Exam: Mucous Membranes Moist - Respiratory Exam Respiratory Exam: Clear to PA & Lateral, NORMAL BREATHING PATTERN. absent: Wheezes - Cardiovascular Exam Cardiovascular Exam: REGULAR RHYTHM, +S1, +S2 - GI/Abdominal Exam GI & Abdominal Exam: Normal Bowel Sounds, Soft. absent: Tenderness - Extremities Exam Extremities exam: normal inspection - Neurological Exam Neurological exam: Alert, Oriented x3 - Psychiatric Exam Psychiatric exam: Normal Affect, Normal Mood Discharge Plan - Discharge Medications Prescriptions: SITagliptin [Januvia] 25 mg PO DAILY #30 tab - Follow Up Plan Condition: GUARDED Disposition: HOME/ ROUTINE Additional Instructions: patient cleared for discharge to Home today by Rx for meds provided f/u with Referrals: Kvng Dover MD [Staff Provider] -
[2018-01-15 12:57] VITALS: BP 141/61; PULSE 82; TEMP 98.3; O2SAT 99
== END 2018-01-15 14:38 | disposition home health service (06) | DRG 684 ==
LOC: H.ER 20:34 → H.ERHOLD 23:10 → H.TEL 01-13 00:50
PROVIDERS: ADMIT Internal Medicine; ATTEND Internal Medicine
DX: N17.9 Acute kidney failure, unspecified (principal); E86.9 Volume depletion, unspecified; I95.2 Hypotension due to drugs; T50.2X5A Adverse effect of carbonic-anhydrase inhibitors, benzothiadiazides and other diuretics, initial encounter; E11.9 Type 2 diabetes mellitus without complications; I10 Essential (primary) hypertension; J45.909 Unspecified asthma, uncomplicated; F32.9 Major depressive disorder, single episode, unspecified; Z85.3 Personal history of malignant neoplasm of breast; Z90.12 Acquired absence of left breast and nipple; Z98.84 Bariatric surgery status; Z79.84 Long term (current) use of oral hypoglycemic drugs; Z79.899 Other long term (current) drug therapy; Y92.9 Unspecified place or not applicable